=== PATIENT | female | born 1955 | race Caucasian/White ===

== ENCOUNTER → 2016-10-18 | Outpatient (CLI) | payer OTHER ==
[~2016-10-18] MED LIST: ACETAMINOPHEN500 MG PO; AMMONIUM LACTATE12 %; AYR SALINE; BENADRYL25 M1 PO; CITALOPRAM HYDR40 MG PO; CLOBETASOL PRO0.055 TOP; CLOPIDOGREL75 MG PO; CRESTOR40 MG; CYCLOBENZAPRINE5 MG PO; DIOVAN160 MG PO; EPIPEN 2-PAK0.3 MG; FERROUS GLUCON324 MG; FUROSEMIDE40 MG PO; HUMALOG100 MG/ML SC; KLOR-CON M2020 MEQ PO; LANTUS SOL100 UNITS/ SC; LOVAZA1 GM; MAGNESIUM OXID400 MG PO; MULTI-DA1; MYRBETRIQ25 MG; ONDANSETRON HCL4 MG SL; OXYBUTYNIN CHLOR5 M1 PO; OXYCODONE HCL5 MG PO; QVAR80 MCG IN; RANITIDINE HCL150 MG PO; SYMBICORT1 AE1 IN; TRAMADOL HCL50 MG PO; VITAMIN D310000 IU PO; XOPENEX HFA IN; XYZAL5 MG; [UNRECOGNIZED DRUG - OTHER] OP
--- NOTE | 2016-10-18 10:41 | DIAGNOSTIC IMAGING REPORT ---
PROCEDURE: MR UPPER EXT NON-JT WO CONT-LT INDICATION: FX MIDDLE FINGER DELAYED HEALING TECHNIQUE: Coronal T1, STIR, 3-D FSPGR; sagittal T1, STIR and 3-D fiesta; axial T1 and STIR sequences. COMPARISON: Left hand x-rays 09/02/2016 and 08/05/2016. FINDINGS: Nondisplaced intra-articular fracture at the base of the fourth middle phalanx and nondisplaced intra-articular fracture of the fifth middle phalanx distally. Fracture line is still visible with adjacent edema , without significant interval change. No other osseous abnormalities. Joint spaces and soft tissues are normal. IMPRESSION: 1. Nondisplaced intra-articular fractures of the left fourth and fifth middle phalanges
== END ==
LOC: MRI SRH 08:18
DX: S62.657A Nondisplaced fracture of middle phalanx of left little finger, initial encounter for closed fracture (principal); S62.655A Nondisplaced fracture of middle phalanx of left ring finger, initial encounter for closed fracture

== ENCOUNTER 2017-03-02 22:43 | Emergency (ER) | payer OTHER ==
--- NOTE | 2017-03-03 00:11 | DIAGNOSTIC IMAGING REPORT ---
PROCEDURE: XR WRIST MIN 3 VIEWS - LEFT INDICATION: TRAUMA/INJURY TECHNIQUE: Three views. COMPARISON: None. FINDINGS: Osseous structures and joint spaces are normal. If an occult scaphoid fracture is suspected clinically, follow-up examination in 10-14 days may be of assistance. IMPRESSION: 1. Normal left wrist.
--- NOTE | 2017-03-03 00:34 | ED ORDER SUMMARY ---
..... Patient: Ameena RAMOS OrderSheet [facility] VisitID: [id number] [place] [address] 61y, F Registration Date/Time: 03/02/2017 ORDER SHEET Weight: 90.7 kg (stated) Allergies: Ampicillin, Ceftin, Most tapes, Nortriptyline HCl, PCN, PLASTIC GENERAL ORDERS: Wrist 3 or 4V Left Urgent (23:24 03/02/2017 Itzel Zarco) ([facility] 23:28 [facility]) (23:47 Nuvia Galeana) MEDICATION ORDERS: IV FLUIDS: ORDER SHEET NOTES: [Electronically signed by Xena Hernandez R.N. (01:02 03/03/2017)] [Electronically signed by Baron Jc Dr. (09:33 03/03/2017)] [Electronically locked/signed by Xena Hernandez R.N. (01:02 03/03/2017)]
--- NOTE | 2017-03-03 00:34 | ED NURSING NOTES ---
Clinical Report - Nurses [facility] [address] [place] [address] 03/02/2017 22:43 Patient: Ameena RAMOS [facility] [id number] TRIAGE late entry - 23:01 03/02/17. --23:49 Xena Hernandez R.N. Triage time 23:Mar 02 2017. Acuity: LEVEL 4. Chief Complaint: LEFT UPPER EXTREMITY PAIN and SWELLING. 23:08 03/02/17. SEPSIS SCREEN: Sepsis Screen. Negative (no infection suspected/documented). CON COMA SCORE: [place] Coma Scale: 15- eyes open spontaneously (4); best verbal response- oriented x 4 (5); best motor response- obeys commands (6). --23:08 Xena Hernandez R.N. <<STRICKEN ENTRY-- 23:47 03/02/17. BP: 128/62 (regular adult cuff) taken on the right arm. HR: 65. RR: 16. O2 saturation: 97% on room air. Temp: 99 F (oral). Pain level now: 01/05. --23:49 Xena Hernandez R.N. --END STRIKE>> Change to Details. --23:49 Xena Hernandez R.N. 23:01 03/02/17. BP: 128/62 (regular adult cuff) taken on the right arm. HR: 65. RR: 16. O2 saturation: 97% on room air. Temp: 99 F (oral). Pain level now: 01/05. --23:49 Xena Hernandez R.N. Weight: 90.7 kg stated. Height/Length: 66 inches Per Patient. BMI: 32.3. --23:06 Xena Hernandez R.N. Medications Crestor Oral 40 mg, daily. HumaLOG Subcutaneous (sliding scale ). Iron Oral 325 mg, 2x a day. Lantus Subcutaneous 80-100unit , 2x a day. Lasix Oral 80 mg. Lovaza 2mg 2x daily. Magox 3-4 daily. Multivitamins Oral. Oxybutynin Chloride Oral 10 mg, two at night/one in am. Plavix Oral 75 mg, daily. Vitamin D Oral 71168 units weekly. Xopenex Inhalation. --23: Xena Hernandez R.N. Citalopram Hydrobromide Oral (Tablet 40 mg) 1 tablet, daily. --23:03 Xena Hernandez R.N. Ranitidine HCl Oral (Capsule 300 mg) 1 capsule, daily. --23:03 Xena Hernandez R.N. Propranolol HCl Oral (Tablet 40 mg) 2 tablets, 2x a day. --23:04 Xena Hernandez R.N. antihistomine. --23:05 Xena Hernandez R.N. Januvia Oral (Tablet 100 mg) 3tablets, daily. --23:07 Xena Hernandez R.N. Invokana Oral (Tablet 100 mg) 1 tablet, daily. --23:07 Xena Hernandez R.N. Allergies Ampicillin. Ceftin. Most tapes. Nortriptyline HCl. PCN. PLASTIC. --23:05 Xena Hernandez R.N. History Arrived by private vehicle. Historian: patient. Primary physician (Dr Saldana). Injury occurred. This occurred today (1729). Occurred at home. ( Tripped over [employer]). She has had swelling. 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 PAST MEDICAL HX: Diabetes mellitus. Hypertension. Last normal menstrual period- 9 years ago. SOCIAL HX: Never smoker. Occasional alcohol use; consumes wine. No drug use. No infectious disease exposure. ABUSE ASSESSMENT: No report of abuse. SELF HARM ASSESSMENT: A self harm assessment was performed. The patient answered "no" to the question "Have you recently felt down, depressed, or hopeless?", "Have you noticed less interest or pleasure in doing things?", "Do you have thoughts of harming or killing yourself?", "Are you here because you tried to hurt yourself?", "Have you ever tried to hurt yourself before today?", "Have you recently had thoughts about harming or killing others?" and "Do you have any dangerous items in your possession?". --23:08 Xena Hernandez R.N. PROBLEMS: Contusion. Fall. Bronchitis. Sinusitis. Prior Nosebleeds. Diabetes Mellitus. Fibromyalgia. Gastroesophageal Reflux Disease. Hypertension. Hypercholesterolemia. Asthma. --23: Xena Hernandez R.N. ADDITIONAL SURGERIES: Breast reduction . Cholecystectomy. Fusion of posterior lumbar spine. Gastroplasty. Laminotomy for decompression and exploration. Shoulder Surgery. --23: Xena Hernandez R.N. Interventions ID band on patient. To treatment room. --23:08 Xena Hernandez R.N. PHYSICAL ASSESSMENT 23:03/02/17. Ambulatory to room. Patient gowned. GENERAL / NEURO / PSYCH: Oriented X 4. Alert. Appears in no acute distress. EXTREMITIES: Limited ROM present in the left wrist and left hand. Neuro-vascular status intact to the extremity. No upper extremity edema. Skin is non-tender on the extremities. Left wrist: swelling. Limited ROM secondary to pain (diminished flexion). SKIN: Skin intact. Skin is warm and dry. --23: Xena Hernandez R.N. NURSING PROGRESS NOTES 23:03/02/17. The plan of care for this patient has been created. Cold pack applied. Extremity elevated. Reassurance given. Two patient identifiers checked. Call light placed in reach. Side rails up x 1. Bed placed in lowest position. Brakes of bed on. Patient ready for evaluation- chart flagged and ED physician notified. --23: Xena Hernandez R.N. 23:03/02/17. ( Patient given warm blanket for comfort measures). --23:17 Xena Hernandez R.N. 23:26 03/02/17. ( Patient informed there may be quite a wait, asked if she needed anything for pain at this moment and she says no she can wait until she sees doctor. Lights dimmed, patient laid back, she will rest while she waits.). --23:26 Xena Hernandez R.N. 23:47 03/02/17. ( portable xray in room with patient). --23:47 Xena Hernandez R.N. 23:50 03/02/17. ( Xray finished with patient). --23:50 Xena Hernandez R.N. 00:33 03/03/17. ( Rounded on patient, sleeping, easily aroused, will forgo vitals for now, replenished ice in bag and placed back on wrist.). --00:33 Xena Hernandez R.N. DISPOSITION / DISCHARGE 01:00 03/03/17. Departure time: 01:Mar 03 2017. Condition at departure: improved. No learning barriers present. Discharge instructions provided and reviewed with the patient. Reviewed medication(s) side effects, precautions, dosing and course information. Reviewed wound care instructions. Activity restrictions (minimal use of injured extremity) reviewed. Patient verbalized understanding. Written instructions provided in Chinese. The patient was discharged by the physician. She was discharged home. She left the Emergency Department ambulatory and via private vehicle. Patient driving. --01:00 Xena Hernandez R.N. 00:59 03/03/17. BP: 129/66 (regular adult cuff) taken on the left arm. HR: 64. RR: 18. O2 saturation: 100% on room air. Temp: 98.3 F (oral). Pain level now: 11/07. --01:00 Xena Hernandez R.N. Locked/Released at 03/03/2017 1:02 by Xena Hernandez R.N.
--- NOTE | 2017-03-03 00:34 | ED CLINICAL REPORT ---
Clinical Report - Physicians/Mid Levels [facility] [address] [place] [address] 03/02/2017 22:43 [id number] Time Seen: 23:24; initial patient contact. Arrived- By private vehicle. Historian- patient. HISTORY OF PRESENT ILLNESS Chief Complaint: Injury to the left wrist. The injury happened today. Occurred at home. Fell and landed on a wood surface; tripped. Patient is experiencing moderate pain. Patient denies injury to the head or neck. REVIEW OF SYSTEMS The patient has had swelling. No tingling, numbness, foreign body or skin laceration. All systems otherwise negative, except as recorded above. PAST HISTORY Contusion. Fall. Bronchitis. Sinusitis. Prior Nosebleeds. Diabetes Mellitus. Fibromyalgia. Gastroesophageal Reflux Disease. Hypertension. Hypercholesterolemia. Asthma. --23:06 Xena Hernandez R.N. ADDITIONAL SURGERIES: Breast reduction . Cholecystectomy. Fusion of posterior lumbar spine. Gastroplasty. Laminotomy for decompression and exploration. Shoulder Surgery. SOCIAL HISTORY Never smoker. Occasional alcohol use. ADDITIONAL NOTES The nursing notes have been reviewed. PHYSICAL EXAM Vital Signs: 03/02/2017 23:01 BP: 128/62. HR: 65. RR: 16. O2 saturation: 97%. Temp: 99 F. Pain level now: 4/10. Have been reviewed as normal. Appearance: Alert. Oriented X3. No acute distress. Extremities: Left distal ulna: mild erythema, tenderness and swelling. Limited ROM at the wrist secondary to pain (diminished radial deviation). Neurovascular intact distally. No laceration, abrasion, ecchymosis or deformity. Hand and wrist exam otherwise negative. Extremities otherwise negative. Neuro, Vascular and Tendons: Vascular status intact. Sensation intact. Motor intact. Tendon function intact. LABS, X-RAYS, AND EKG Lt Wrist X-ray: (1. Normal left wrist.). Technique: good. The X-rays were independently viewed by me, interpreted by the radiologist and discussed with the radiologist. Interpretation time: 00:34. PROGRESS AND PROCEDURES Disposition: Discharged home in good condition. Condition: good. CLINICAL IMPRESSION Single contusion to the left wrist. INSTRUCTIONS Apply ice for 20 minutes four times a day followed by heat 20 minutes. Don't apply ice directly to skin. Limit use of your left hand until better. Your Current Medications: CONTINUE TAKING THE FOLLOWING MEDICATIONS: antihistomine*. Citalopram Hydrobromide Oral : Tablet 40 mg, 1 tablet daily. Crestor Oral : 40 mg daily. HumaLOG Subcutaneous : sliding scale. Invokana Oral : Tablet 100 mg, 1 tablet daily. Iron Oral : 325 mg 2x a day. Januvia Oral : Tablet 100 mg, 3tablets daily. Lantus Subcutaneous : 80-100unit 2x a day. Lasix Oral : 80 mg. Lovaza 2mg 2x daily*. Magox 3-4 daily*. Multivitamins Oral. Oxybutynin Chloride Oral : 10 mg two at night/one in am. Plavix Oral : 75 mg daily. Propranolol HCl Oral : Tablet 40 mg, 2 tablets 2x a day. Ranitidine HCl Oral : Capsule 300 mg, 1 capsule daily. Vitamin D Oral : 51611 units weekly. Xopenex Inhalation. Prescription Medications: Oxycodone 5 mg tablets: take 1 orally every 6 hours as needed for pain. Dispense ten (10). No refill. Follow-up: Follow up with your doctor in about two days. Call for an appointment. Blood pressure screening was not performed during this visit because the patient has an active diagnosis of hypertension. (Electronically signed by Baron Jc Dr. 03/03/2017 9:33)
--- NOTE | 2017-03-03 00:34 | ED NURSING NOTES ---
Clinical Report - Nurses [facility] [address] [place] [address] 03/02/2017 22:43 [id number] TRI[facility] late entry - 23:01 03/02/17. --23:49 Xena Hernandez R.N. Triage time 23:Mar 02 2017. Acuity: LEVEL 4. Chief Complaint: LEFT UPPER EXTREMITY PAIN and SWELLING. 23:08 03/02/17. SEPSIS SCREEN: Sepsis Screen. Negative (no infection suspected/documented). CON COMA SCORE: [place] Coma Scale: 15- eyes open spontaneously (4); best verbal response- oriented x 4 (5); best motor response- obeys commands (6). --23:08 Xena Hernandez R.N. <<STRICKEN ENTRY-- 23:47 03/02/17. BP: 128/62 (regular adult cuff) taken on the right arm. HR: 65. RR: 16. O2 saturation: 97% on room air. Temp: 99 F (oral). Pain level now: 01/05. --23:49 Xena Hernandez R.N. --END STRIKE>> Change to Details. --23:49 Xena Hernandez R.N. 23:01 03/02/17. BP: 128/62 (regular adult cuff) taken on the right arm. HR: 65. RR: 16. O2 saturation: 97% on room air. Temp: 99 F (oral). Pain level now: 01/05. --23:49 Xena Hernandez R.N. Weight: 90.7 kg stated. Height/Length: 66 inches Per Patient. BMI: 32.3. --23:06 Xena Hernandez R.N. Medications Crestor Oral 40 mg, daily. HumaLOG Subcutaneous (sliding scale ). Iron Oral 325 mg, 2x a day. Lantus Subcutaneous 80-100unit , 2x a day. Lasix Oral 80 mg. Lovaza 2mg 2x daily. Magox 3-4 daily. Multivitamins Oral. Oxybutynin Chloride Oral 10 mg, two at night/one in am. Plavix Oral 75 mg, daily. Vitamin D Oral 87568 units weekly. Xopenex Inhalation. --23: Xena Hernandez R.N. Citalopram Hydrobromide Oral (Tablet 40 mg) 1 tablet, daily. --23:03 Xena Hernandez R.N. Ranitidine HCl Oral (Capsule 300 mg) 1 capsule, daily. --23:03 Xena Hernandez R.N. Propranolol HCl Oral (Tablet 40 mg) 2 tablets, 2x a day. --23:04 Xena Hernandez R.N. antihistomine. --23:05 Xena Hernandez R.N. Januvia Oral (Tablet 100 mg) 3tablets, daily. --23:07 Xena Hernandez R.N. Invokana Oral (Tablet 100 mg) 1 tablet, daily. --23:07 Xena Hernandez R.N. Allergies Ampicillin. Ceftin. Most tapes. Nortriptyline HCl. PCN. PLASTIC. --23:05 Xena Hernandez R.N. History Arrived by private vehicle. Historian: patient. Primary physician (Dr Saldana). Injury occurred. This occurred today (1729). Occurred at home. ( Tripped over [employer]). She has had swelling. 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 PAST MEDICAL HX: Diabetes mellitus. Hypertension. Last normal menstrual period- 9 years ago. SOCIAL HX: Never smoker. Occasional alcohol use; consumes wine. No drug use. No infectious disease exposure. ABUSE ASSESSMENT: No report of abuse. SELF HARM ASSESSMENT: A self harm assessment was performed. The patient answered "no" to the question "Have you recently felt down, depressed, or hopeless?", "Have you noticed less interest or pleasure in doing things?", "Do you have thoughts of harming or killing yourself?", "Are you here because you tried to hurt yourself?", "Have you ever tried to hurt yourself before today?", "Have you recently had thoughts about harming or killing others?" and "Do you have any dangerous items in your possession?". --23:08 Xena Hernandez R.N. PROBLEMS: Contusion. Fall. Bronchitis. Sinusitis. Prior Nosebleeds. Diabetes Mellitus. Fibromyalgia. Gastroesophageal Reflux Disease. Hypertension. Hypercholesterolemia. Asthma. --23: Xena Hernandez R.N. ADDITIONAL SURGERIES: Breast reduction . Cholecystectomy. Fusion of posterior lumbar spine. Gastroplasty. Laminotomy for decompression and exploration. Shoulder Surgery. --23: Xena Hernandez R.N. Interventions ID band on patient. To treatment room. --23:08 Xena Hernandez R.N. PHYSICAL ASSESSMENT 23:03/02/17. Ambulatory to room. Patient gowned. GENERAL / NEURO / PSYCH: Oriented X 4. Alert. Appears in no acute distress. EXTREMITIES: Limited ROM present in the left wrist and left hand. Neuro-vascular status intact to the extremity. No upper extremity edema. Skin is non-tender on the extremities. Left wrist: swelling. Limited ROM secondary to pain (diminished flexion). SKIN: Skin intact. Skin is warm and dry. --23: Xena Hernandez R.N. NURSING PROGRESS NOTES 23:03/02/17. The plan of care for this patient has been created. Cold pack applied. Extremity elevated. Reassurance given. Two patient identifiers checked. Call light placed in reach. Side rails up x 1. Bed placed in lowest position. Brakes of bed on. Patient ready for evaluation- chart flagged and ED physician notified. --23: Xena Hernandez R.N. 23:03/02/17. ( Patient given warm blanket for comfort measures). --23:17 Xena Hernandez R.N. 23:26 03/02/17. ( Patient informed there may be quite a wait, asked if she needed anything for pain at this moment and she says no she can wait until she sees doctor. Lights dimmed, patient laid back, she will rest while she waits.). --23:26 Xena Hernandez R.N. 23:47 03/02/17. ( portable xray in room with patient). --23:47 Xena Hernandez R.N. 23:50 03/02/17. ( Xray finished with patient). --23:50 Xena Hernadnez R.N. 00:33 03/03/17. ( Rounded on patient, sleeping, easily aroused, will forgo vitals for now, replenished ice in bag and placed back on wrist.). --00:33 Xena Hernandez R.N. DISPOSITION / DISCHARGE 01:00 03/03/17. Departure time: 01:Mar 03 2017. Condition at departure: improved. No learning barriers present. Discharge instructions provided and reviewed with the patient. Reviewed medication(s) side effects, precautions, dosing and course information. Reviewed wound care instructions. Activity restrictions (minimal use of injured extremity) reviewed. Patient verbalized understanding. Written instructions provided in Syriac. The patient was discharged by the physician. She was discharged home. She left the Emergency Department ambulatory and via private vehicle. Patient driving. --01:00 Xena Hernandez R.N. 00:59 03/03/17. BP: 129/66 (regular adult cuff) taken on the left arm. HR: 64. RR: 18. O2 saturation: 100% on room air. Temp: 98.3 F (oral). Pain level now: 11/07. --01:00 Xena Hernandez R.N. Locked/Released at 03/03/2017 1:02 by Xena Hernandez R.N.
--- NOTE | 2017-03-03 00:34 | ED CLINICAL REPORT ---
Clinical Report - Physicians/Mid Levels [facility] [address] [place] [address] 03/02/2017 22:43 [id number] Time Seen: 23:24; initial patient contact. Arrived- By private vehicle. Historian- patient. HISTORY OF PRESENT ILLNESS Chief Complaint: Injury to the left wrist. The injury happened today. Occurred at home. Fell and landed on a wood surface; tripped. Patient is experiencing moderate pain. Patient denies injury to the head or neck. REVIEW OF SYSTEMS The patient has had swelling. No tingling, numbness, foreign body or skin laceration. All systems otherwise negative, except as recorded above. PAST HISTORY Contusion. Fall. Bronchitis. Sinusitis. Prior Nosebleeds. Diabetes Mellitus. Fibromyalgia. Gastroesophageal Reflux Disease. Hypertension. Hypercholesterolemia. Asthma. --23:06 Xena Hernandez R.N. ADDITIONAL SURGERIES: Breast reduction . Cholecystectomy. Fusion of posterior lumbar spine. Gastroplasty. Laminotomy for decompression and exploration. Shoulder Surgery. SOCIAL HISTORY Never smoker. Occasional alcohol use. ADDITIONAL NOTES The nursing notes have been reviewed. PHYSICAL EXAM Vital Signs: 03/02/2017 23:01 BP: 128/62. HR: 65. RR: 16. O2 saturation: 97%. Temp: 99 F. Pain level now: 4/10. Have been reviewed as normal. Appearance: Alert. Oriented X3. No acute distress. Extremities: Left distal ulna: mild erythema, tenderness and swelling. Limited ROM at the wrist secondary to pain (diminished radial deviation). Neurovascular intact distally. No laceration, abrasion, ecchymosis or deformity. Hand and wrist exam otherwise negative. Extremities otherwise negative. Neuro, Vascular and Tendons: Vascular status intact. Sensation intact. Motor intact. Tendon function intact. LABS, X-RAYS, AND EKG Lt Wrist X-ray: (1. Normal left wrist.). Technique: good. The X-rays were independently viewed by me, interpreted by the radiologist and discussed with the radiologist. Interpretation time: 00:34. PROGRESS AND PROCEDURES Disposition: Discharged home in good condition. Condition: good. CLINICAL IMPRESSION Single contusion to the left wrist. INSTRUCTIONS Apply ice for 20 minutes four times a day followed by heat 20 minutes. Don't apply ice directly to skin. Limit use of your left hand until better. Your Current Medications: CONTINUE TAKING THE FOLLOWING MEDICATIONS: antihistomine*. Citalopram Hydrobromide Oral : Tablet 40 mg, 1 tablet daily. Crestor Oral : 40 mg daily. HumaLOG Subcutaneous : sliding scale. Invokana Oral : Tablet 100 mg, 1 tablet daily. Iron Oral : 325 mg 2x a day. Januvia Oral : Tablet 100 mg, 3tablets daily. Lantus Subcutaneous : 80-100unit 2x a day. Lasix Oral : 80 mg. Lovaza 2mg 2x daily*. Magox 3-4 daily*. Multivitamins Oral. Oxybutynin Chloride Oral : 10 mg two at night/one in am. Plavix Oral : 75 mg daily. Propranolol HCl Oral : Tablet 40 mg, 2 tablets 2x a day. Ranitidine HCl Oral : Capsule 300 mg, 1 capsule daily. Vitamin D Oral : 83920 units weekly. Xopenex Inhalation. Prescription Medications: Oxycodone 5 mg tablets: take 1 orally every 6 hours as needed for pain. Dispense ten (10). No refill. Follow-up: Follow up with your doctor in about two days. Call for an appointment. Blood pressure screening was not performed during this visit because the patient has an active diagnosis of hypertension. (Electronically signed by Baron Jc Dr. 03/03/2017 9:33)
--- NOTE | 2017-03-03 00:34 | ED ORDER SUMMARY ---
..... Patient: Ameena RAMOS OrderSheet [facility] VisitID: [id number] [place] [address] 61y, F Registration Date/Time: 03/02/2017 ORDER SHEET Weight: 90.7 kg (stated) Allergies: Ampicillin, Ceftin, Most tapes, Nortriptyline HCl, PCN, PLASTIC GENERAL ORDERS: Wrist 3 or 4V Left Urgent (23:24 03/02/2017 Itzel Zarco) ([facility] 23:28 [facility]) (23:47 Nuvia Galeana) MEDICATION ORDERS: IV FLUIDS: ORDER SHEET NOTES: [Electronically signed by Xena Hernandez R.N. (01:02 03/03/2017)] [Electronically signed by Baron Jc Dr. (09:33 03/03/2017)] [Electronically locked/signed by Xena Hernandez R.N. (01:02 03/03/2017)]
--- NOTE | 2017-03-03 09:34 | ED MED RECONCILIATION SUMMARY ---
Patient: Ameena RAMOS Medication Reconciliation Report [facility] VisitID: [id number] [place] [address] 61y, F Registration Date/Time: 03/02/2017 Weight: 90.7 kg Height/Length: 66 in. BMI: 32.3 ALLERGIES: Ampicillin, Ceftin, Most tapes, Nortriptyline HCl, PCN, PLASTIC The patient's Home Medications are listed below: CONTINUE TAKING THE FOLLOWING MEDICATIONS: antihistomine Citalopram Hydrobromide Oral (40 mg) 1 tablet, daily Crestor Oral 40 mg, daily HumaLOG Subcutaneous, sliding scale Invokana Oral (100 mg) 1 tablet, daily Iron Oral 325 mg, 2x a day Januvia Oral (100 mg) 3tablets, daily Lantus Subcutaneous 80-100unit , 2x a day Lasix Oral 80 mg Lovaza 2mg 2x daily Magox 3-4 daily Multivitamins Oral Oxybutynin Chloride Oral 10 mg, two at night/one in am Plavix Oral 75 mg, daily Propranolol HCl Oral (40 mg) 2 tablets, 2x a day Ranitidine HCl Oral (300 mg) 1 capsule, daily Vitamin D Oral 31850 units weekly Xopenex Inhalation The source(s) of the original Home Medication information: Not obtained. The following Medications were given to the patient in the Emergency Department: None. The following Medications were prescribed to the patient: Oxycodone 5 mg tablets: take 1 orally every 6 hours as needed for pain. Dispense ten (10). No refill. -- Baron Jc Dr.
--- NOTE | 2017-03-03 09:34 | ED DISCHARGE INSTRUCTIONS ---
Patient: Ameena RAMOS General Instructions [facility] VisitID: [id number] [place] [address] 61y, F Registration Date/Time: 03/02/2017 Single contusion to the left wrist. INSTRUCTIONS Apply ice for 20 minutes four times a day followed by heat 20 minutes. Don't apply ice directly to skin. Limit use of your left hand until better. Your Current Medications: CONTINUE TAKING THE FOLLOWING MEDICATIONS: antihistomine*. Citalopram Hydrobromide Oral : Tablet 40 mg, 1 tablet daily. Crestor Oral : 40 mg daily. HumaLOG Subcutaneous : sliding scale. Invokana Oral : Tablet 100 mg, 1 tablet daily. Iron Oral : 325 mg 2x a day. Januvia Oral : Tablet 100 mg, 3tablets daily. Lantus Subcutaneous : 80-100unit 2x a day. Lasix Oral : 80 mg. Lovaza 2mg 2x daily*. Magox 3-4 daily*. Multivitamins Oral. Oxybutynin Chloride Oral : 10 mg two at night/one in am. Plavix Oral : 75 mg daily. Propranolol HCl Oral : Tablet 40 mg, 2 tablets 2x a day. Ranitidine HCl Oral : Capsule 300 mg, 1 capsule daily. Vitamin D Oral : 78285 units weekly. Xopenex Inhalation. Prescription Medications: Oxycodone 5 mg tablets: take 1 orally every 6 hours as needed for pain. Dispense ten (10). No refill. Follow-up: Follow up with your doctor in about two days. Call for an appointment. Blood pressure screening was not performed during this visit because the patient has an active diagnosis of hypertension. ADDITIONAL INFORMATION Contusion,Soft Tissue You have a CONTUSION, which is a bruise with swelling and some bleeding under the skin. There are no broken bones. This injury takes a few days to a few weeks to heal. Home Care: 1) Keep the injured part elevated to reduce pain and swelling. This is especially important during the first 48 hours. 2) Make an ice pack (ice cubes in a plastic bag, wrapped in a towel) and apply for 20 minutes every 1-2 hours the first day. Continue this 3-4 times a day until the pain and swelling goes away. 3) You may use acetaminophen (Tylenol) or ibuprofen (Motrin, Advil) to control pain, unless another pain medicine was prescribed. [ NOTE : If you have chronic liver or kidney disease or ever had a stomach ulcer or GI bleeding, talk with your doctor before using these medicines.] Follow Up with your doctor or this facility if you are not improving within the next THREE days. [NOTE: If X-rays were taken, they will be reviewed by a radiologist. You will be notified of any new findings that may affect your care.] Get Prompt Medical Attention if any of the following occur: -- Pain or swelling increases -- Injured arm or leg becomes cold, blue, numb or tingly -- Redness, warmth or drainage from the skin You have been given the following additional information: Contusion, Soft Tissue Limit use of your left hand until better. (Electronically signed by Baron Jc Dr. 03/03/2017 9:33)
--- NOTE | 2017-03-03 09:34 | ED DISCHARGE INSTRUCTIONS ---
Patient: Ameena RAMOS General Instructions [facility] VisitID: [id number] [place] [address] 61y, F Registration Date/Time: 03/02/2017 Single contusion to the left wrist. INSTRUCTIONS Apply ice for 20 minutes four times a day followed by heat 20 minutes. Don't apply ice directly to skin. Limit use of your left hand until better. Your Current Medications: CONTINUE TAKING THE FOLLOWING MEDICATIONS: antihistomine*. Citalopram Hydrobromide Oral : Tablet 40 mg, 1 tablet daily. Crestor Oral : 40 mg daily. HumaLOG Subcutaneous : sliding scale. Invokana Oral : Tablet 100 mg, 1 tablet daily. Iron Oral : 325 mg 2x a day. Januvia Oral : Tablet 100 mg, 3tablets daily. Lantus Subcutaneous : 80-100unit 2x a day. Lasix Oral : 80 mg. Lovaza 2mg 2x daily*. Magox 3-4 daily*. Multivitamins Oral. Oxybutynin Chloride Oral : 10 mg two at night/one in am. Plavix Oral : 75 mg daily. Propranolol HCl Oral : Tablet 40 mg, 2 tablets 2x a day. Ranitidine HCl Oral : Capsule 300 mg, 1 capsule daily. Vitamin D Oral : 04722 units weekly. Xopenex Inhalation. Prescription Medications: Oxycodone 5 mg tablets: take 1 orally every 6 hours as needed for pain. Dispense ten (10). No refill. Follow-up: Follow up with your doctor in about two days. Call for an appointment. Blood pressure screening was not performed during this visit because the patient has an active diagnosis of hypertension. ADDITIONAL INFORMATION Contusion,Soft Tissue You have a CONTUSION, which is a bruise with swelling and some bleeding under the skin. There are no broken bones. This injury takes a few days to a few weeks to heal. Home Care: 1) Keep the injured part elevated to reduce pain and swelling. This is especially important during the first 48 hours. 2) Make an ice pack (ice cubes in a plastic bag, wrapped in a towel) and apply for 20 minutes every 1-2 hours the first day. Continue this 3-4 times a day until the pain and swelling goes away. 3) You may use acetaminophen (Tylenol) or ibuprofen (Motrin, Advil) to control pain, unless another pain medicine was prescribed. [ NOTE : If you have chronic liver or kidney disease or ever had a stomach ulcer or GI bleeding, talk with your doctor before using these medicines.] Follow Up with your doctor or this facility if you are not improving within the next THREE days. [NOTE: If X-rays were taken, they will be reviewed by a radiologist. You will be notified of any new findings that may affect your care.] Get Prompt Medical Attention if any of the following occur: -- Pain or swelling increases -- Injured arm or leg becomes cold, blue, numb or tingly -- Redness, warmth or drainage from the skin You have been given the following additional information: Contusion, Soft Tissue Limit use of your left hand until better. (Electronically signed by Baron Jc Dr. 03/03/2017 9:33)
--- NOTE | 2017-03-03 09:34 | ED MAR SUMMARY ---
..... Medication Administration Record [facility] [address] [place] [id number] Patient: Ameena RAMOS Visit ID: [id number] 61y, F Weight: 90.7 kg Height/Length: 66 in BMI: 32.3 ALLERGIES: Ampicillin, Ceftin, Most tapes, Nortriptyline HCl, PCN, PLASTIC
--- NOTE | 2017-03-03 09:34 | ED MAR SUMMARY ---
..... Medication Administration Record [facility] [address] [place], [place] [id number] Patient: Ameena RAMOS Visit ID: [id number] 61y, F Weight: 90.7 kg Height/Length: 66 in BMI: 32.3 ALLERGIES: Ampicillin, Ceftin, Most tapes, Nortriptyline HCl, PCN, PLASTIC
--- NOTE | 2017-03-03 09:34 | ED MED RECONCILIATION SUMMARY ---
Patient: Ameena RAMOS Medication Reconciliation Report [facility] VisitID: [id number] [place] [address] 61y, F Registration Date/Time: 03/02/2017 Weight: 90.7 kg Height/Length: 66 in. BMI: 32.3 ALLERGIES: Ampicillin, Ceftin, Most tapes, Nortriptyline HCl, PCN, PLASTIC The patient's Home Medications are listed below: CONTINUE TAKING THE FOLLOWING MEDICATIONS: antihistomine Citalopram Hydrobromide Oral (40 mg) 1 tablet, daily Crestor Oral 40 mg, daily HumaLOG Subcutaneous, sliding scale Invokana Oral (100 mg) 1 tablet, daily Iron Oral 325 mg, 2x a day Januvia Oral (100 mg) 3tablets, daily Lantus Subcutaneous 80-100unit , 2x a day Lasix Oral 80 mg Lovaza 2mg 2x daily Magox 3-4 daily Multivitamins Oral Oxybutynin Chloride Oral 10 mg, two at night/one in am Plavix Oral 75 mg, daily Propranolol HCl Oral (40 mg) 2 tablets, 2x a day Ranitidine HCl Oral (300 mg) 1 capsule, daily Vitamin D Oral 60078 units weekly Xopenex Inhalation The source(s) of the original Home Medication information: Not obtained. The following Medications were given to the patient in the Emergency Department: None. The following Medications were prescribed to the patient: Oxycodone 5 mg tablets: take 1 orally every 6 hours as needed for pain. Dispense ten (10). No refill. -- Baron Jc Dr.
== END 2017-03-03 01:00 | disposition home or self-care (01) ==
LOC: ED SRH 22:43
DX: S60.212A Contusion of left wrist, initial encounter (principal); W01.0XXA Fall on same level from slipping, tripping and stumbling without subsequent striking against object, initial encounter; Y93.9 Activity, unspecified; Y92.019 Unspecified place in single-family (private) house as the place of occurrence of the external cause; Y99.8 Other external cause status; I10 Essential (primary) hypertension; E11.9 Type 2 diabetes mellitus without complications; K21.9 Gastro-esophageal reflux disease without esophagitis; E78.00 Pure hypercholesterolemia, unspecified; J45.909 Unspecified asthma, uncomplicated